=== PATIENT | male | born 1960 | race Caucasian/White ===

== ENCOUNTER → 2019-05-18 | Outpatient (CLI) | payer OTHER ==
--- NOTE | 2019-05-18 16:38 | US ---
EXAMINATION TYPE: US kidneys/renal and bladder DATE OF EXAM: 05/18/2019 COMPARISON: NONE CLINICAL HISTORY: M54.5 Lower back pain. EXAM MEASUREMENTS: Right Kidney: 10.5 x 5.0 x 4.5 cm Left Kidney: 10.6 x 5.8 x 5.3 cm Right Kidney: No hydronephrosis or masses seen Left Kidney: No hydronephrosis or masses seen Bladder: wnl Bilateral Jets seen: Yes There is no evidence for hydronephrosis at this point in time. No nephrolithiasis is seen. No jen s are identified. The urinary bladder is anechoic. Bilateral ureteral jets are seen. IMPRESSION: No hydronephrosis or nephrolithiasis.
== END | disposition home or self-care (01) ==
LOC: RADUSWWP 15:57
PROVIDERS: ATTEND Internal Medicine
DX: M54.5 Low back pain (principal); Z88.0 Allergy status to penicillin
CPT/HCPCS: 76770

== ENCOUNTER → 2021-08-12 | Outpatient (CLI) | payer OTHER ==
[2021-08-12 14:38] LABS: Eosinophils % (A) 2.4 %; HCT 44.5 % (39.6-50.0); HGB 15.2 g/dL (13.0-17.0); Lymphocytes # (A) 1.53 X 10*3/uL (0.90-5.00); Lymphocytes % (A) 30.5 %; MCH 28.6 pg (27.0-32.0); MCHC 34.2 g/dL (32.0-37.0); MCV 83.8 fL (80.0-97.0); Mean Platelet Volume 9.7 fL (9.5-12.2); Monocytes % (A) 11.6 %; Neutrophils # (A) 2.71 X 10*3/uL (1.80-7.70); Neutrophils % (A) 54.1 %; Platelet Count 232 X 10*3/uL (140-440); RBC 5.31 X 10*6/uL (4.40-5.60); RDW 12.2 % (11.5-14.5); WBC 5.01 X 10*3/uL (4.50-10.00)
[2021-08-12 14:39] LABS: Basophils # (A) 0.05 X 10*3/uL (0.00-0.10); Eosinophils # (A) 0.12 X 10*3/uL (0.04-0.35); Immature Grans, Automated 0.4 %; Monocytes # (A) 0.58 X 10*3/uL (0.20-1.00); NRBC Per 100 WBC 0 /100 WBCS (0.0-0.0)
[2021-08-12 14:45] LABS: ALT 69 U/L (10-49); AST 43 U/L (14-35); Albumin 4.4 g/dL (3.8-4.9); Alkaline Phosphatase 59 U/L (41-126); Blood Urea Nitrogen 12.6 mg/dL (9.0-27.0); Calcium 9.2 mg/dL (8.7-10.3); Carbon Dioxide 27.5 mmol/L (20.0-27.5); Chloride 104 mmol/L (96-109); Chol/HDL Ratio 5.08 Ratio; Glucose 106 mg/dL (70-110); LDL Cholesterol,Calculated 109.5 mg/dL (0.0-131.0); Non-African American GFR(CKD) 93.2 (60.0-200.0); Potassium 4.3 mmol/L (3.5-5.5); Sodium 140 mmol/L (135-145); Total Protein 6.4 g/dL (6.2-8.2)
== END | disposition home or self-care (01) ==
LOC: LABWHC1 09:24
PROVIDERS: ATTEND Family Medicine
DX: Z00.00 Encounter for general adult medical examination without abnormal findings (principal); Z12.5 Encounter for screening for malignant neoplasm of prostate
CPT/HCPCS: 80053; 80061; 85025; 36415; G0103

== ENCOUNTER → 2021-12-22 | Outpatient (CLI) | payer OTHER ==
[2021-12-22 15:01] LABS: Basophils # (A) 0.04 X 10*3/uL (0.00-0.10); Basophils % (A) 0.9 %; Eosinophils # (A) 0.25 X 10*3/uL (0.04-0.35); Eosinophils % (A) 5.6 %; HCT 43.2 % (39.6-50.0); HGB 15.1 g/dL (13.0-17.0); Immature Grans, Automated 0.2 %; Lymphocytes # (A) 1.58 X 10*3/uL (0.90-5.00); Lymphocytes % (A) 35.3 %; MCH 29.3 pg (27.0-32.0); MCV 83.9 fL (80.0-97.0); Monocytes % (A) 11.2 %; NRBC Per 100 WBC 0 /100 WBCS (0.0-0.0); Neutrophils # (A) 2.09 X 10*3/uL (1.80-7.70); Neutrophils % (A) 46.8 %; Platelet Count 217 X 10*3/uL (140-440); RBC 5.15 X 10*6/uL (4.40-5.60); RDW 12.2 % (11.5-14.5); WBC 4.47 X 10*3/uL (4.50-10.00)
== END | disposition home or self-care (01) ==
LOC: LABPAT 08:30
PROVIDERS: ATTEND Surgery
DX: Z01.818 Encounter for other preprocedural examination (principal); R00.1 Bradycardia, unspecified
CPT/HCPCS: 85025; 93005

== ENCOUNTER 2021-12-29 06:21 | Day surgery (SDC) | payer OTHER ==
[2021-12-25 09:01] VITALS: BMI 29.7
[~2021-12-29 06:21] MED LIST: HEPARIN SODIUM,PORCINE/PF 5,000 UNIT/0.5 ML SYRINGE SQ PRN
[2021-12-29] MEDS ORDERED: LACTATED RINGERS 1,000 ML IV ONE ×2 (07:15→08:34)
[2021-12-29] MEDS ORDERED: ONDANSETRON 4 MG/2 ML VIAL IVP ONE (07:20)
[2021-12-29] MEDS ORDERED: DEXAMETHASONE SOD PHOSPHATE 4 MG/ML 1 ML VIAL IVP ONE (07:20)
[2021-12-29] MEDS ORDERED: TAMSULOSIN 0.4 MG CAP.ER.24H PO ONE (07:25)
[2021-12-29] MEDS ORDERED: ACETAMINOPHEN TAB 500 MG TAB PO ONE (07:25)
[2021-12-29] MEDS ORDERED: GLYCOPYRROLATE 0.2 MG/ML 2 ML VIAL ONE (07:38)
[2021-12-29] MEDS ORDERED: MIDAZOLAM 2 MG/2 ML VIAL ONE (07:38)
[2021-12-29] MEDS ORDERED: LIDOCAINE 2% INJ 20 MG/ML (2 ML VIAL) ONE (07:38)
[2021-12-29] MEDS ORDERED: NEOSTIGMINE 1 MG/ML 10 ML VIAL ONE (07:38)
[2021-12-29] MEDS ORDERED: ROCURONIUM 10 MG/ML (5 ML VIAL) IV ONE (07:38)
[2021-12-29] MEDS ORDERED: KETOROLAC 15 MG/ML 1 ML VIAL ONE (07:38)
[2021-12-29] MEDS ORDERED: fentaNYL (PF) 50 MCG/ML 2 ML AMP ONE (07:38)
[2021-12-29] MEDS ORDERED: SUCCINYLCHOLINE CHLORIDE 200 MG/10 ML VIAL IV ONE (07:38)
[2021-12-29] MEDS ORDERED: PROPOFOL 10 MG/ML 20 ML VIAL IV ONE (07:38)
[2021-12-29] MEDS ORDERED: BUPIVACAINE (PF) 0.25% 30 ML VIAL SQ ONE ×2 (07:59→09:40)
--- NOTE | 2021-12-29 09:56 | P.OP ---
Date of Procedure: 12/29/21 Procedure(s) Performed: PREOPERATIVE DIAGNOSIS: Umbilical hernia, right inguinal hernia POSTOPERATIVE DIAGNOSIS: Same PROCEDURE: Open repair umbilical hernia, laparoscopic da Xochitl assisted repair right inguinal hernia with mesh SURGEON: Dr. Carvalho ANESTHESIA: General OPERATIVE PROCEDURE DETAILS: Patient was placed in the operating table in the supine position. The patient was placed under general anesthesia. The abdomen was prepped and draped in usual sterile fashion. A small curvilinear supraumbilical incision was made. The fascia was dissected in the umbilical skin was lifted off of the fascia. The fascial defect measured 1 cm in size. The peritoneum was opened under direct visualization. The 8 mm trocar was placed within the abdominal cavity and insufflation took place. 2 additional 8 mm trochars were placed in the right upper quadrant and left upper quadrant under visualization. The robotic arms were then brought in and docked into place. The fenestrated bipolar was used in the left arm and the laparoscopic jose was utilized in the right arm. A 30 8 mm scope was used in the up position. The peritoneal cavity was inspected. The patient had a large indirect hernia on the right-hand side. There was the start of a very superficial indirect hernia on the left-hand side measuring less than 1 cm. Only the right side was addressed. The peritoneum was incised in a horizontal fashion cephalad to the internal inguinal ring. Following that careful dissection of the preperitoneal space took place. This took place using both electrocautery, sharp dissection but primarily blunt dissection. Visualization of the pubic tubercle and Niranjan's ligament took place medially. Full dissection took place laterally as well. The hernia sac was fully dissected. Once we had adequate space the extra-large [employer] attendant automatic mesh was advanced into the preperitoneal space and flattened out appropriately to cover all potential hernia sites. No sutures were used. The peritoneal defect was then closed using a absorbable 2-0 VLok suture. The hernia sac was incorporated into the peritoneal closure to help prevent future recurrence. The pneumoperitoneum was then evacuated. The fascia was then addressed at the umbilicus. Interrupted [id number] Ethibond sutures were used to close the fascial defect. The umbilical skin was sutured down using 3-0 Vicryl sutures and the subcutaneous tissues were closed as well using 3-0 Vicryl sutures. The skin of all 3 sites was closed using a 4-0 Monocryl stitch. Skin glue was then applied. TYPE OF MESH USED: Extra-large Pro car [employer] attendant automatic LOCATION OF MESH: Preperitoneal FIXATION: None PREOPERATIVE DISCUSSION ON SMOKING CESSASTION: Yes PREOPERATIVE DISCUSSION ON MORBID OBESITY: Yes PREOPERATIVE DISCUSSION ON APPROPRIATE USE OF NARCOTIC USE: Yes PREOPERATIVE EDUCATION: Multi Modal, Smoking Cessation and Weight Loss with BMI over 35. DISPOSITION: Stable to recovery room
[2021-12-29 09:58] VITALS: TEMP 97.5
[2021-12-29] MEDS ORDERED: HYDROmorphone 0.5 MG/0.5 ML SYRINGE IVP ONE ×2 (10:00→10:25)
[2021-12-29 12:00] VITALS: BP 125/71; PULSE 56; RESP 15
[2021-12-29] MEDS ORDERED: ACETAMINOPHEN TAB 325 MG TAB PO SCH (12:00)
[2021-12-29] MEDS ORDERED: IBUPROFEN 600 MG TAB PO SCH (13:00)
== END 2021-12-29 12:05 | disposition home or self-care (01) ==
LOC: OR 06:21
PROVIDERS: ATTEND Surgery
DX: K42.9 Umbilical hernia without obstruction or gangrene (principal); I10 Essential (primary) hypertension; Z79.899 Other long term (current) drug therapy
CPT/HCPCS: 86900; 86901; 86850; 49652; C1781; J2250; J0330; J1100; J2710; J0690; J2405; J3010; J1885; J2704; J1170; J1644; J2001